=== PATIENT | female | born 1995 | race Two or more races ===

== ENCOUNTER 2022-01-02 13:11 | Outpatient (CLI) | payer OTHER | END 2022-01-02 14:25 | disposition home or self-care (01) | LOC: PRENATAL 13:11 | PROVIDERS: ATTEND Obstetrics & Gynecology Maternal & Fetal Medicine | DX: O35.0XX0 Maternal care for (suspected) central nervous system malformation in fetus, not applicable or unspecified (principal); O35.3XX0 Maternal care for (suspected) damage to fetus from viral disease in mother, not applicable or unspecified; Z3A.20 20 weeks gestation of pregnancy; O28.1 Abnormal biochemical finding on antenatal screening of mother ==

== ENCOUNTER 2022-03-22 18:39 | Outpatient (CLI) | payer OTHER ==
[2022-03-22] MEDS ORDERED: FOLIC ACID0.8 M1 PO (18:58)
[2022-03-22] MEDS ORDERED: PRENATAL + DHA1 EAC1 PO (18:58)
[2022-03-23] MEDS ORDERED: FERROUS SULFAT325 MG PO (07:33)
== END 2022-03-23 11:26 | disposition home or self-care (01) ==
LOC: OBS/DEL 18:39 → LDR 18:51 → OBS/DEL 18:55
PROVIDERS: ATTEND Specialist
DX: O47.03 False labor before 37 completed weeks of gestation, third trimester (principal); Z3A.32 32 weeks gestation of pregnancy

== ENCOUNTER 2022-05-04 13:00 | Inpatient (IN) | payer OTHER ==
[~2022-05-04] VITALS: Ht 170.2 cm; Wt 97.5 kg
[~2022-05-04 13:00] MED LIST: FERROUS SULFAT325 MG PO; FOLIC ACID0.8 M1 PO; PRENATAL + DHA1 EAC1 PO
== END 2022-05-10 08:56 | disposition home or self-care (01) | DRG 807 ==
LOC: LDR 05-08 19:54 → OB/GYN 05-08 19:54
PROVIDERS: ADMIT Specialist; ATTEND Specialist
PROC: 10E0XZZ Delivery of Products of Conception, External Approach (ICD-10-PCS; principal; 2022-05-08)
PROC: 0KQM0ZZ Repair Perineum Muscle, Open Approach (ICD-10-PCS; 2022-05-08)
PROC: 4A1HXCZ Monitoring of Products of Conception, Cardiac Rate, External Approach (ICD-10-PCS; 2022-05-08)
DX: O70.1 Second degree perineal laceration during delivery (principal); Z37.0 Single live birth; Z3A.38 38 weeks gestation of pregnancy; Z20.822 Contact with and (suspected) exposure to COVID-19